=== PATIENT | male | born 1995 | race Caucasian/White ===

== ENCOUNTER 2019-11-01 15:11 | Emergency (ER) | payer OTHER, SELFPAY ==
[2019-11-01 15:21] VITALS: BP 147/89; PULSE 95; RESP 16; TEMP 35.9; O2SAT 98
--- NOTE | 2019-11-01 16:13 | ED.WOUNDLAC ---
HPI - Wound/Laceration General Chief Complaint: Wound/Laceration Stated Complaint: Laceration Left hand Time Seen by Provider: 11/01/19 16:13 Source: patient and RN notes reviewed Mode of arrival: ambulatory Limitations: no limitations Related Data Allergies Allergy/AdvReac Type Severity Reaction Status Date / Time cefaclor Allergy Unknown Unknown Verified 08/25/19 13:33 Review of Systems Review of Systems: Narrative: CONSTITUTIONAL: Denies fever, chills, or sweats. EYES: Denies visual changes, redness, or discharge. ENT: Denies rhinorrhea, congestion, sore throat, or otalgia. CARDIOVASCULAR: Denies chest pain, palpitations, or edema. RESPIRATORY: Denies cough or dyspnea. GASTROINTESTINAL: Denies abdominal pain, nausea, vomiting, or diarrhea. GENITOURINARY: Denies dysuria or hematuria. SKIN: Denies rash or itching. MUSCULOSKELETAL: Denies back pain, joint pain, or myalgia. NEUROLOGIC: Denies headache, numbness, or weakness. PSYCHIATRIC: Denies anxiety or depression. All systems reviewed & are unremarkable except as noted in HPI and below PMFSH Family History Family History Mother Depression Father Hypertension Sibling Patient's sister is in good health Other Family history of cardiovascular disease Family history of malignant neoplasm Social History Social History Smoking status: Heavy tobacco smoker Alcohol intake: current Substance use type: marijuana Comments At time of signature, agree with nursing past medical, surgical, social and family history. There is no relevant family history pertinent to the presenting complaint Exam Narrative: Exam Narrative: GENERAL: Well-appearing, well-nourished, and in no acute distress. HEAD: Normocephalic, atraumatic. EYES: PERRLA and EOMI. ENT: Nares clear, no rhinorrhea or epistaxis. Mucous membranes moist. NECK: Supple. CHEST: Clear to auscultation. No respiratory distress. HEART: Regular rate and rhythm. No murmur heard. Normal peripheral pulses. ABDOMEN: Soft, nontender, nondistended, normal active bowel sounds. EXTREMITIES: Normal range of motion. No edema. SKIN: Warm, dry, no rash. NEURO: No focal deficits. Alert and oriented x3. Course Vital Signs Vital signs: Vital Signs Temperature 35.9 C L 11/01/19 15:21 Pulse Rate 95 11/01/19 15:21 Respiratory Rate 16 11/01/19 15:21 Blood Pressure 147/89 H 11/01/19 15:21 Pulse Oximetry 98 11/01/19 15:21 Temperature 35.9 C L 11/01/19 15:21 Pulse Rate 95 11/01/19 15:21 Respiratory Rate 16 11/01/19 15:21 Blood Pressure 147/89 H 11/01/19 15:21 Pulse Oximetry 98 11/01/19 15:21 MDM - Wound/Laceration Differential Diagnosis Differential diagnosis: Likely laceration Medical Records Attestation: I reviewed the patient's medical records. Critical Care Time Critical Care Time Critical Care Time: No Discharge Plan Discharge Clinical Impression: Laceration Patient Disposition: Home, Self-Care Condition: Stable Instructions: Antibiotic Form, Laceration (ED) Additional Instructions: Keep the area clean and dry No continuous water contact like dishes or swimming You may bathe and wash you hair caution with hair products or lotions Antibiotic ointment to the area 3-4 times a day dressing of choice watch for infection--redness, swelling, drainage follow up with PCP for suture/staple in removal days recheck with PCP if further concerns or problems If your symptoms persist, change or worsen significantly before you can contact your personal physician then please, without delay, go to the emergency department for further evaluation. Follow-up with PCP in 7-10 days or sooner if needed Follow up with PCP soon in regards to your blood pressure which is elevated above threshold for referral. Blood pressure above 120/80 may indicate pre-hypertension. Prescriptio
--- NOTE | 2019-11-01 16:23 | ED.WOUNDLAC ---
HPI - Wound/Laceration General Chief Complaint: Wound/Laceration Stated Complaint: Laceration Left hand Time Seen by Provider: 11/01/19 16:13 Source: patient and RN notes reviewed Mode of arrival: ambulatory Limitations: no limitations History of Present Illness HPI narrative: 24 year old male who presents to [facility] care with laceration to his left thenar region of left hand linear minimally subcutaneous with bleeding controlled. Patient states that he was cutting drywall with a knife and it slipped cutting into his left hand. Patient states that his tetanus shot it up to date. Patient has full mobility of his left thumb fingers and is able to make closed fist without difficulty, denies any tingling or numbness to his left hand, strong left radial pulse with nailbeds of his left hand blanching briskly. Onset (ago): hour(s) (1) Location: other (left hand thenar region) Extremity Location: Left: hand Place: work Patient tetanus UTD: Yes Context: accidental Associated symptoms: pain Treatments prior to arrival: bandage Related Data Allergies Allergy/AdvReac Type Severity Reaction Status Date / Time cefaclor Allergy Unknown Unknown Verified 08/25/19 13:33 Review of Systems Review of Systems: Narrative: CONSTITUTIONAL: Denies fever, chills, or sweats. EYES: Denies visual changes, redness, or discharge. ENT: Denies rhinorrhea, congestion, sore throat, or otalgia. CARDIOVASCULAR: Denies chest pain, palpitations, or edema. RESPIRATORY: Denies cough or dyspnea. GASTROINTESTINAL: Denies abdominal pain, nausea, vomiting, or diarrhea. GENITOURINARY: Denies dysuria or hematuria. SKIN: Denies rash or itching.Laceration to left hand thenar region with knife cutting drywall MUSCULOSKELETAL: Denies back pain, joint pain, or myalgia. NEUROLOGIC: Denies headache, numbness, or weakness. PSYCHIATRIC: Denies anxiety or depression. All systems reviewed & are unremarkable except as noted in HPI and below PMFSH Past Medical History Medical History (Updated 11/02/19 @ 13:16 by Sheila Knight NP) ADD (attention deficit disorder) Anxiety and depression Back pain Fracture of right wrist Pyloric stenosis Surgical History Surgical History (Updated 11/02/19 @ 13:16 by Sheila Knight NP) Hx of foot surgery Family History Family History Mother Depression Father Hypertension Sibling Patient's sister is in good health Other Family history of cardiovascular disease Family history of malignant neoplasm Social History Social History (Updated 11/02/19 @ 13:28 by Sheila Knight NP) Smoking status: Heavy tobacco smoker Alcohol intake: current Substance use type: marijuana Living arrangements: with family Gender identity (if verbalized by the patient): Male Comments At time of signature, agree with nursing past medical, surgical, social history. There is no relevant family history pertinent to the presenting complaint Exam Narrative: Exam Narrative: GENERAL: Well-appearing, well-nourished, and in no acute distress. HEAD: Normocephalic, atraumatic. EYES: PERRLA and EOMI. ENT: Nares clear, no rhinorrhea or epistaxis. Mucous membranes moist. NECK: Supple.no lymphadenopathy CHEST: Clear to auscultation. No respiratory distress.SAO2 98% on room air HEART: Regular rate and rhythm. No murmur heard. Normal peripheral pulses. ABDOMEN: Soft, nontender, nondistended, normal active bowel sounds. EXTREMITIES: Normal range of motion. No edema.4cm laceration to thenar region of left hand , has full mobility of left thumb and hand with no numbness or tingling voiced, strong left radial pulse, fingers fully mobile with brisk capillary refill to his nailbeds. SKIN: Warm, dry, no rash. NEURO: No focal deficits. Alert and oriented x3. Course Vital Signs Vital signs: Vital Signs Temperature 35.9 C L 11/01/19 15:21 Pulse Rate 95 11/01/19 15:21 Respiratory Rate 16
== END 2019-11-01 16:57 | disposition home or self-care (01) ==
PROVIDERS: Emergency Provider Registered Nurse; PCP Internal Medicine
DX: S61.412A Laceration without foreign body of left hand, initial encounter (principal); F17.200 Nicotine dependence, unspecified, uncomplicated; F98.8 Other specified behavioral and emotional disorders with onset usually occurring in childhood and adolescence; W26.0XXA Contact with knife, initial encounter
CPT/HCPCS: 12002; 99213; G0463

== ENCOUNTER 2019-11-17 14:17 | Emergency (ER) | payer OTHER, SELFPAY ==
--- NOTE | 2019-11-17 15:35 | ED.GENADULT ---
HPI - General Adult General Chief complaint: Unspecified Stated complaint: excessive sweating Time Seen by Provider: 11/17/19 15:25 Source: patient and RN notes reviewed Mode of arrival: ambulatory Limitations: no limitations History of Present Illness HPI narrative: 24-year-old male presents with concern for multiple complaints. He reports history of low back aches for which he generally takes ibuprofen. Reports backache is not constant, is worse after a day of work. Reports worse on the right lower side, worse with bending and twisting. He also reports 2-day history of excessive sweating while at work. He reports he works in construction, drinks plenty of fluid including Gatorade during the day, however still sweats excessively. He reports he sometimes goes up to 12 hours without urinating. He reports intermittent generalized muscle cramping in his arms and legs. He denies any flank pain, dysuria, hematuria, nausea, vomiting. Denies fever, general malaise. MD complaint: low back pain Related Data Home Medications Medication Instructions Recorded Confirmed desvenlafaxine succinate [Pristiq] 100 mg PO DAILY 11/17/19 11/17/19 dextroamphetamine-amphetamine 30 mg PO DAILY 11/17/19 11/17/19 [Adderall XR] Allergies Allergy/AdvReac Type Severity Reaction Status Date / Time cefaclor Allergy Unknown Unknown Verified 11/17/19 15:35 Review of Systems Review of Systems: Narrative: CONSTITUTIONAL: Denies malaise, chills, sweats, or fever. Reports periods of excessive sweating EYES: Denies visual changes, redness, or discharge. ENT: Denies rhinorrhea, congestion, sinus pain, otalgia or sore throat. CARDIOVASCULAR: Denies chest pain, palpitations, or edema. RESPIRATORY: Denies cough or dyspnea. GASTROINTESTINAL: Denies abdominal pain, nausea, vomiting, diarrhea GENITOURINARY: Denies dysuria or hematuria. SKIN: Denies rash or itching. MUSCULOSKELETAL: D reports muscle cramping NEUROLOGIC: Denies numbness, weakness, or headache. PSYCHIATRIC: Denies anxiety All systems reviewed & are unremarkable except as noted in HPI and below PMFSH Past Medical History Medical History (Updated 11/17/19 @ 15:36 by Marion Maldonado NP) ADD (attention deficit disorder) Anxiety and depression Back pain Fracture of right wrist Pyloric stenosis Surgical History Surgical History (Updated 11/02/19 @ 13:16 by Sheila Knight NP) Hx of foot surgery Social History Social History (Updated 11/02/19 @ 13:28 by Sheila Knight NP) Smoking status: Heavy tobacco smoker Alcohol intake: current Substance use type: marijuana Gender identity (if verbalized by the patient): Male Comments At time of signature, agree with nursing past medical, surgical, social and family history. There is no relevant family history pertinent to the presenting complaint Exam Narrative: Exam Narrative: GENERAL: Well-appearing, well-nourished, and in no acute distress. HEAD: Normocephalic, atraumatic. EYES: PERRLA, conjunctivae clear ENT: Mucous membranes moist. NECK: Supple. CHEST: No respiratory distress. Clear to auscultation. No bony deformities, no asymmetry. Speaks in full sentences. HEART: Regular rate and rhythm. No murmur heard. Normal peripheral pulses. ABDOMEN: Soft, nontender, nondistended, normal active bowel sounds, no palpable masses. EXTREMITIES: Normal range of motion. SKIN: Warm, dry, no rash. NEURO: Alert and oriented x3. No focal deficits. PSYCH: Normal mood and affect Course Course Emergency Course: Patient is aware of diagnosis, understands and agrees to treatment plan. Anticipatory guidance given. Patient agrees to follow-up as directed and is aware of reasons to seek care at the emergency department. Portions of this record may have been created with voice recognition software Vital Signs Vital signs: Vital Signs Temperature 98.0 F 11/17/19 15:36 Pulse Rate 98 11/17/19 15:36 Respiratory Rate 18 11/17/19 15
[2019-11-17 15:36] VITALS: BP 150/80; PULSE 98; RESP 18; TEMP 36.7; O2SAT 100
--- NOTE | 2019-11-17 15:46 | PC.NURSE ---
Pt started as a downtime pt- K#[id number]
[2019-11-18 09:09] LABS: Glucose Point of Care 77 (65-105)
== END 2019-11-17 15:40 | disposition home or self-care (01) ==
PROVIDERS: Emergency Provider Nurse Practitioner
DX: R61 Generalized hyperhidrosis (principal); M54.5 Low back pain; F98.8 Other specified behavioral and emotional disorders with onset usually occurring in childhood and adolescence; F41.9 Anxiety disorder, unspecified; F32.9 Major depressive disorder, single episode, unspecified; F17.200 Nicotine dependence, unspecified, uncomplicated; R03.0 Elevated blood-pressure reading, without diagnosis of hypertension
CPT/HCPCS: 81003; 82948; 99213; G0463

== ENCOUNTER 2019-12-14 00:35 | Outpatient (CLI) | payer OTHER, SELFPAY ==
[2019-12-14 17:43] LABS: SARS-CoV-2 RNA PCR Negative
== END 2019-12-14 00:36 | disposition home or self-care (01) ==
LOC: ANHCOVIDDT 00:35
PROVIDERS: PCP Internal Medicine; Visit Provider Internal Medicine Gastroenterology
DX: Z01.818 Encounter for other preprocedural examination (principal); Z11.59 Encounter for screening for other viral diseases
CPT/HCPCS: 87635; C9803; U0003

== ENCOUNTER 2019-12-29 08:58 | Outpatient (CLI) | payer OTHER, SELFPAY ==
--- NOTE | 2019-12-29 09:02 | EST_ITS ---
Patient Info Name: Maximiliano Marquez Age: 24 years : 1995 Gender: Male Ht: 75 in Wt: 270 lbs BSA: 2.58 m2 Exam Date: 12/29/2019 9:44 AM Exam Location: [facility] Stress Patient Status: Outpatient Admit Date: 12/29/2019 Staff Ordering Physician: Yaneth Mendez Attending Provider: Yaneth Mendez Exercise Technologist: Hazel Kraus RDCS Exercise Physician: Juan M Mulligan DO Exam Type: CA stress test treadmill Study Info Indications - hyperehidrosis A treadmill exercise stress test was performed. Summary 1. 1. Negative Yariel exercise stress test for ischemic ST changes by ECG criteria. 2. 2. Good functional capacity, achieving 12 METs of workload. 3. 3. Appropriate HR response to exercise. 4. 4. Appropriate HR recovery at 1 minute post exercise. 5. 5. No imaging with stress testing. 6. 6. Patient informed of the above results. Protocol: Yariel Stress ECG Details Stage: REST Duration (min): 0 min : 59 sec Speed (mph): 0.0 Grade (%): 0 HR (bpm): 80 SBP (mmHg): 137 DBP (mmHg): 84 METS: --- Stage: REST Duration (min): 1 min : 15 sec Speed (mph): 0.0 Grade (%): 0 HR (bpm): 81 SBP (mmHg): 137 DBP (mmHg): 84 METS: --- Stage: REST Duration (min): 7 min : 53 sec Speed (mph): 0.0 Grade (%): 0 HR (bpm): 85 SBP (mmHg): 137 DBP (mmHg): 84 METS: --- Stage: STAGE 1 Duration (min): 1 min : 0 sec Speed (mph): 1.7 Grade (%): 10 HR (bpm): 107 SBP (mmHg): 137 DBP (mmHg): 84 METS: --- Stage: STAGE 1 Duration (min): 2 min : 0 sec Speed (mph): 1.7 Grade (%): 10 HR (bpm): 110 SBP (mmHg): 137 DBP (mmHg): 84 METS: --- Stage: STAGE 1 Duration (min): 3 min : 0 sec Speed (mph): 1.7 Grade (%): 10 HR (bpm): 114 SBP (mmHg): 148 DBP (mmHg): 48 METS: --- Stage: STAGE 2 Duration (min): 1 min : 0 sec Speed (mph): 2.5 Grade (%): 12 HR (bpm): 126 SBP (mmHg): 148 DBP (mmHg): 48 METS: --- Stage: STAGE 2 Duration (min): 2 min : 0 sec Speed (mph): 2.5 Grade (%): 12 HR (bpm): 132 SBP (mmHg): 146 DBP (mmHg): 62 METS: --- Stage: STAGE 2 Duration (min): 3 min : 0 sec Speed (mph): 2.5 Grade (%): 12 HR (bpm): 134 SBP (mmHg): 146 DBP (mmHg): 62 METS: --- Stage: STAGE 3 Duration (min): 1 min : 0 sec Speed (mph): 3.4 Grade (%): 14 HR (bpm): 140 SBP (mmHg): 146 DBP (mmHg): 62 METS: --- Stage: STAGE 3 Duration (min): 2 min : 0 sec Speed (mph): 3.4 Grade (%): 14 HR (bpm): 152 SBP (mmHg): 174 DBP (mmHg): 58 METS: --- Stage: STAGE 3 Duration (min): 3 min : 0 sec Speed (mph): 3.4 Grade (%): 14 HR (bpm): 154 SBP (mmHg): 154 DBP (mmHg): 101 METS: --- Stage: STAGE 4 Duration (min): 1 min : 0 sec Speed (mph): 4.2 Grad
== END 2019-12-29 08:59 | disposition home or self-care (01) ==
PROVIDERS: PCP Internal Medicine; Visit Provider Nurse Practitioner
DX: R61 Generalized hyperhidrosis (principal)
CPT/HCPCS: 93017

== ENCOUNTER 2020-05-15 09:30 | Emergency (ER) | payer OTHER, SELFPAY ==
[2020-05-15 09:37] VITALS: BP 142/86; PULSE 67; RESP 16; TEMP 37.1; O2SAT 100
--- NOTE | 2020-05-15 10:00 | PC.NURSE ---
ANNMARIE CABRERA VERBAL ORDER AT THIS TIME FOR PSYCH WORK-UP BASED ON HER EVALUATION AND SPEAKING WITH THE PCP OFFICE. ANNMARIE CABRERA STATES THAT PT DOES NOT NEED A SITTER.
[2020-05-15 10:18] LABS: Basophils Percent Auto 0.6 % (0.2-1.2); Eosinophils Absolute Auto 0.1 K/mm3 (0-0.3); Eosinophils Percent Auto 2.4 % (0-4.4); Hematocrit 51.6 % (42.0-52.0); Hemoglobin 17.1 g/dL (14.0-18.0); Lymphocytes Absolute Auto 1.39 K/mm3 (0.9-3.2); Lymphocytes Percent Auto 30.1 % (18.3-44.2); Mean Corpuscular HGB Conc 33.1 g/dl (32-36); Mean Corpuscular Hemoglobin 31.2 pg (26-34); Mean Corpuscular Volume 94.2 fl (80-100); Mean Platelet Volume 9.2 fl (7.4-10.4); Monocytes Absolute Auto 0.3 K/mm3 (0.1-0.6); Monocytes Percent Auto 6.5 % (2.6-8.5); Neutrophils Absolute Auto 2.8 K/mm3 (1.3-6.7); Neutrophils Percent Auto 60.4 % (45.5-73.1); Platelet Count Result 198 k/mm3 (150-375); Red Blood Count 5.48 M/mm3 (4.6-6.20); White Blood Count 4.6 K/mm3 (4.5-10.0)
--- NOTE | 2020-05-15 10:22 | PC.NURSE ---
PT INFORMED OF NEED FOR UA, UNABLE TO PROVIDE SAMPLE AT THIS TIME, REFUSING CATH, PROVIDED WATER.
--- NOTE | 2020-05-15 10:22 | ED.PSYCH ---
HPI - Psych General Chief Complaint: Psychiatric Symptoms Stated Complaint: SI Time Seen by Provider: 05/15/20 09:38 Source: patient Mode of arrival: EMS Limitations: no limitations History of Present Illness HPI Narrative: THis patient is a 24 year old male with history of Bipolar who presents from his doctor's office for evaluation of suicidal thoughts. PAtient reports he made an appointment to be seen by his PCP today because he wanted to be prescribed for Abilify. He states he has been off his abilify for 1 month because he did not think it was doing anything for him. He then noticed after he stopped taking the medication he started having suicidal thoughts daily. He also reports he only wants to sleep and he is not finding enjoyment in life. He states he does not have a plan . He denies history of past suicidal attempt. He was seen in the office of Dr. Downs today by a EGG SORTER . The EGG SORTER states she performed a PHQ- 9 scale and he scored 24. They called 911 to have patient brought to ER for psychiatric evaluation. Related Data Home Medications Medication Instructions Recorded Confirmed multivitamin [Daily Multi-Vitamin] 1 tablet PO DAILY 12/13/19 05/15/20 aripiprazole [Abilify] 2 mg PO DAILY 05/15/20 Allergies Allergy/AdvReac Type Severity Reaction Status Date / Time cefaclor Allergy Intermediate Rash Verified 05/15/20 08:31 Review of Systems Review of Systems: All systems reviewed & are unremarkable except as noted in HPI and below Psychiatric: Psychiatric: Reports depression, Denies homicidal ideation and Reports suicidal ideation PMFSH Past Medical History Medical History ADD (attention deficit disorder) Anxiety and depression Back pain Blood in stool Fracture of right wrist History of migraine headaches Melena Pyloric stenosis Surgical History Surgical History Hx of foot surgery Family History Family History Mother Depression Father Hypertension Sibling Patient's sister is in good health Other Family history of cardiovascular disease Family history of malignant neoplasm Social History Social History Smoking packs per day: 1.5 Smoking cigarettes per day: 30.0 Years smoked: 9 Smoking pack-years: 13.50 Smoking status: Current every day smoker Tobacco type: cigarettes Second hand tobacco smoke exposure: No Alcohol intake: current Substance use: current Substance use type: marijuana Gender identity (if verbalized by the patient): Male Exam Const: General: alert Orientation/consciousness: patient oriented x3 HENMT: Head: normocephalic and atraumatic Eyes: EOM: EOMs intact bilaterally Resp: Effort & Inspection: normal respiratory effort and no retractions Auscultation: clear to auscultation bilaterally GI: GI Palp: Yes Soft to palpation, No Tenderness to palpation present (GI), No Guarding due to palpation present (GI) and No Rigid due to palpation Skin: General skin exam: normal color Rashes: no rashes Neuro: General: patient oriented x3 and moves all extremities Psych: Appearance: grossly normal Mental Status: mental status grossly normal Affect: Sad affect present Thought content: No Homicidality present, No delusions, No Hallucination(s) present, Yes Depressive thoughts present, No Ideas of reference present (thought content) and No Obsession(s) present Course Reevaluation(s) Reevaluation #1: I discussed with patient that his PCP was really concerned that he would not get psychiatric evaluation before discharge. He is agreeable to psychiatric evaluation here . Date: 05/15/20 Time: 10:37 Reevaluation #2: Brina from [facility] has evaluated the patient and she has spoken to his mother. She agrees patient is stable to disch
[2020-05-15 10:30] LABS: Alanine Aminotransferase 32 U/L (4-50); Albumin Level 4.7 g/dL (3.5-5.1); Alkaline Phosphatase 50 U/L (38-126); Anion Gap 8 mmol/L (8-16); Aspartate Amino Transferase 25 U/L (17-59); Bilirubin,Total 1.2 mg/dL (0.2-1.3); Blood Urea Nitrogen 12 mg/dL (9-20); Calcium 9.4 mg/dL (8.4-10.2); Carbon Dioxide 28 mmol/L (22-30); Chloride 104 mmol/L (98-107); Estimated CRCL calculation 171 ml/min; Estimated Glomerular Filt Rate > 60; Ethanol < 10 mg/dL (<10); Glucose 101 mg/dL (75-110); Potassium 4.7 mmol/L (3.4-5.0); Sodium 140 mmol/L (137-145)
--- NOTE | 2020-05-15 10:38 | PC.NURSE ---
PT MEDICALLY CLEARED BY ANNMARIE CABRERA AT THIS TIME.
[2020-05-15] MEDS: NICOTINE (*PBKC) 21 MG PATCH 1 PATCH TRANSDERM (10:45)
--- NOTE | 2020-05-15 10:48 | PC.NURSE ---
COMMERCIAL ANNOUNCER ESPERANZA STATES THAT SHE ATTEMPTED TO GIVE PT NICOTINE PATCH PER HIS REQUEST, UPON ATTEMPTING ADMIN, PT REFUSING PATCH BECAUSE I DIDN'T KNOW THAT IT WAS GOING TO COST ME MONEY.
[2020-05-15 10:53] LABS: Add Urine Microscopic? NO; Appearance Urine Clear (Clear); Bilirubin Urine Negative (Negative); Blood Urine Negative (Negative); Color Urine Yellow (Yellow); Glucose Urine UA Negative (Negative); Ketones Urine Negative (Negative); Leukocyte Esterase Ur Negative LEU/UL (Negative); Nitrate Urine Negative (Negative); Protein Urine Negative (Negative); Specific Grav Ur 1.016 (1.001-1.035); Urobilinogen Urine Negative mg/dL (<2.0)
[2020-05-15 11:02] LABS: Benzodiazepines Screen Urine Negative (Negative)
[2020-05-15 11:03] LABS: Barbiturate Screen Urine Negative (Negative)
[2020-05-15 11:05] LABS: Amphetamine Screen Urine Negative (Negative); Cannabinoid Screen Urine Positive (Negative); Cocaine Screen Urine Negative (Negative); Methadone Screen Urine Negative (Negative); Opiate Screen Urine Negative (Negative); Phencyclidine Screen Urine Negative (Negative)
--- NOTE | 2020-05-15 11:16 | PC.NURSE ---
JYOTHI FROM [facility] IN ROOM WITH PT AT THIS TIME.
[2020-05-15 12:25] VITALS: BP 134/75; PULSE 68; RESP 16; O2SAT 100
== END 2020-05-15 12:25 | disposition home or self-care (01) ==
PROVIDERS: Emergency Provider General Practice; PCP Internal Medicine
DX: F32.9 Major depressive disorder, single episode, unspecified (principal); F98.8 Other specified behavioral and emotional disorders with onset usually occurring in childhood and adolescence; F41.9 Anxiety disorder, unspecified; F17.210 Nicotine dependence, cigarettes, uncomplicated
CPT/HCPCS: 36415; 80053; 80307; 81003; 84443; 85025; 99284; A9270